=== PATIENT | male | born 1995 | race Caucasian/White ===

== ENCOUNTER 2019-03-19 17:13 | Emergency (ER) | payer OTHER, SELFPAY ==
[~2019-03-19] VITALS: Ht 177.8 cm; Wt 69.5 kg
[2019-03-19] MEDS ORDERED: IBUP-1022 PO (17:28)
[2019-03-19] MEDS ORDERED: ALEV220T22 PO (17:28)
[2019-03-19] MEDS ORDERED: IBUP-1114 PO (17:28)
--- NOTE | 2019-03-19 19:38 | REP ---
HISTORY: Pain after trauma. COMPARISON: None. FINDINGS: Three views of the shoulder were performed. The acromioclavicular and glenohumeral relationships are within normal limits. There is no acute fracture or destructive osseous lesion. Electronically Signed by Corey Gresham DO 03/19/2019 07:46 P
[2019-03-19] MEDS ORDERED: NAPR-837 PO ×2 (20:03→20:15)
[2019-03-19 20:20] VITALS: BP 122/64
== END 2019-03-19 20:22 | disposition home or self-care (01) ==
LOC: M ED 17:13
DX: S43.001A Unspecified subluxation of right shoulder joint, initial encounter (principal); X50.0XXA Overexertion from strenuous movement or load, initial encounter; Y92.89 Other specified places as the place of occurrence of the external cause; Y93.89 Activity, other specified; Y99.1 Military activity